=== PATIENT | male | born 1990 | race African-American/Black ===

== ENCOUNTER 2019-12-12 23:35 | Emergency (ER) | payer OTHER ==
[~2019-12-12] VITALS: Ht 185.4 cm; Wt 82.0 kg
[2019-12-13 07:46] VITALS: BP 138/77
[2019-12-13] MEDS ORDERED: PREDNISONE 20MG TABLET PO ONE (08:45)
[2019-12-13] MEDS: IPRATROPIUM/ALBUTEROL 0.5-3(2.5)MG/3ML NEB HHN ONE ×2 (09:20→09:29)
== END 2019-12-13 10:20 | disposition home or self-care (01) ==
LOC: ER 23:35
DX: J45.909 Unspecified asthma, uncomplicated (principal); R03.0 Elevated blood-pressure reading, without diagnosis of hypertension
CPT/HCPCS: 71045; 94640; 99284; J7512